=== PATIENT | male | born 1980 | race Caucasian/White ===

== ENCOUNTER 2016-08-13 04:29 | Inpatient (IN) | payer MEDICAID ==
[~2016-08-13] VITALS: Ht 172.7 cm; Wt 89.9 kg
[2016-08-13] MEDS ORDERED: SUCCINYLCHOLINE CHLORIDE 20 MG/ML 10 ML VIAL ONE (04:35)
[2016-08-13] MEDS ORDERED: RAPID SEQUENCE KIT [RSI] 1 EACH KIT ONE ×2 (04:35)
[2016-08-13] MEDS ORDERED: SODIUM CHLORIDE 0.9% 1,000 ML IV ONE ×3 (04:40→05:50)
[2016-08-13 04:50] LABS: BASOPHILS % (AUTO) 0.3 % (0.0-2.0); EOSINOPHILS % (AUTO) 2.1 % (1.0-6.0); HEMATOCRIT 42.2 % (41-53); HEMOGLOBIN 13.9 g/dL (13.5-17.5); LYMPHOCYTES # (AUTO) 2.3 K/uL (1.0-4.8); LYMPHOCYTES % (AUTO) 19.2 % (22.0-44.0); MEAN CORPUSCULAR HEMOGLOBIN 31.5 pg (26.0-34.0); MEAN CORPUSCULAR HGB CONC 32.9 G/dL (31.0-37.0); MEAN CORPUSCULAR VOLUME 96 fL (80-100); MONOCYTES # (AUTO) 0.9 K/uL (0.1-1.0); NEUTROPHILS # (AUTO) 8.3 K/uL (1.8-7.7); NEUTROPHILS % (AUTO) 70.4 % (40.0-70.0); PLATELET COUNT (AUTO) 246 K/uL (150-450); RED BLOOD CELL COUNT(AUTO) 4.41 MIL/uL (4.50-5.90); RED CELL DISTRIBUTION WIDTH 12.4 % (11.5-14.5); WHITE BLOOD COUNT (AUTO) 11.8 K/uL (4.5-11.0)
[2016-08-13 04:51] LABS: GLUCOSE,POINT OF CARE 152 MG/DL (70-110)
[2016-08-13 04:55] LABS: ANION GAP 23 mmol/L (8-16); CALCIUM, TOTAL 8.4 mg/dL (8.8-10.5); CARBON DIOXIDE 19 mmol/L (22-29); CHLORIDE 99 mmol/L (98-107); CREATININE 1.71 mg/dL (0.60-1.30); GLOMERULAR FILTR. RATE CALC 46 mL/min (>60); POTASSIUM 3.6 mmol/L (3.5-5.1); SODIUM SERUM 141 mmol/L (136-145); UREA NITROGEN, BLOOD 15 mg/dL (7-18)
[2016-08-13 04:58] LABS: INR 1.1 (0.9-1.1); PROTHROMBIN TIME 11.5 SEC (9.4-11.6)
[2016-08-13 05:12] LABS: SALICYLATE < 2.8 mg/dL (2.8-20.0)
[2016-08-13 05:16] LABS: B-TYPE NATRIURETIC PEPTIDE 24 pg/mL (0-100)
[2016-08-13 05:20] LABS: ALANINE AMINOTRANSFERASE 93 U/L (12-78); ALBUMIN 3.9 g/dL (3.4-5.0); ASPARTATE AMINOTRANSFERASE 74 U/L (15-37); BILIRUBIN,TOTAL 0.6 mg/dL (0.1-1.0); CREATINE KINASE MB 6.9 ng/mL (0-5); CREATINE KINASE, TOTAL 1460 U/L (39-308)
[2016-08-13 05:21] LABS: ADD UA MICROSCOPIC YES; APPEARANCE,URINE CLOUDY (CLEAR); GLUCOSE, URINE (UA) NEGATIVE (NEGATIVE); KETONES,URINE 15 mg/dL (NEGATIVE); LEUKOCYTE ESTERASE ,URINE NEGATIVE (NEGATIVE); OCCULT BLOOD,URINE SMALL (NEGATIVE); PROTEIN,URINE SEE CONFIRM (NEGATIVE)
[2016-08-13] MEDS: PROPOFOL 1000 MG/ISO-OSM 100 ML IV PRN ×7 (05:26→23:42)
[2016-08-13 05:33] LABS: TEMPERATURE, FAHRENHEIT, BG 100.1 FAHREN (96.0-98.6)
[2016-08-13 05:36] LABS: ABG A-A DIFF O2 313.3 mmHg (10-20.0); ABG BASE EXCESS -7.5 mmol/L (-2.0-3.0); ABG HCO3 19.1 mmol/L (22.0-26.0); ABG OXYHEMOGLOBIN 98.3 % (94.0-100.0); ABG PCO2 36 mmHg (35-45); ABG PH 7.329 (7.350-7.450); ALLEN TEST, BLOOD GAS POSITIVE
[2016-08-13 05:38] LABS: SQUAMOUS EPITHELIAL CELL,UR Rare /LPF (None Seen); SULFOSALICYLIC ACID,URINE 1+ (Negative); WBC,URINE 0-2 /HPF (0-5)
[2016-08-13 05:41] LABS: ACETAMINOPHEN < 2 mcg/mL (10-30)
[2016-08-13 05:44] LABS: LACTIC ACID 9.3 mmol/L (0.4-2.0)
[2016-08-13] MEDS ORDERED: SUCCINYLCHOLINE CHLORIDE 20 MG/ML 10 ML VIAL IVP ONE (06:00)
[2016-08-13] MEDS ORDERED: ACETAMINOPHEN 325 MG TABLET PO PRN (06:00)
[2016-08-13] MEDS ORDERED: ETOMIDATE 2 MG/ML 10 ML VIAL IVP ONE ×2 (06:00→12:00)
[2016-08-13] MEDS ORDERED: 0.9% SODIUM CHLORIDE 10 ML SYRINGE IVP PRN (06:00)
[2016-08-13] MEDS ORDERED: ACETAMINOPHEN 650 MG RECTAL SUPPOSITORY PR ONE (06:15)
[2016-08-13 07:04] LABS: REFLEX LACTIC ACID? YES YES
[2016-08-13] MEDS ORDERED: ROCURONIUM BROMIDE 10 MG/ML 5 ML VIAL IVP ONE (07:30)
[2016-08-13] MEDS ORDERED: MORPHINE SULFATE 4 MG/ML SYRINGE ONE (10:20)
[2016-08-13] MEDS ORDERED: MORPHINE SULFATE 4 MG/ML SYRINGE IVP ONE (10:30)
[2016-08-13] MEDS ORDERED: PROPOFOL 1000 MG/ISO-OSM 100 ML IV ONE (10:41)
[2016-08-13] MEDS: MIDAZOLAM HCL 100 MG in DEXTROSE 5%-WATER 180 ML IV PRN (10:54)
[2016-08-13] MEDS: FentaNYL CITRATE PF 500 MCG in DEXTROSE 5%-WATER 90 ML IV PRN (10:55)
[2016-08-13 12:00] VITALS: BP 133/84
[2016-08-13] MEDS ORDERED: ONDANSETRON HCL 4 MG/2 ML VIAL IVP PRN (12:15)
[2016-08-13] MEDS ORDERED: HYDROCODONE/ACETAMINOPHEN 5-325 MG TABLET PO PRN (12:15)
[2016-08-13] MEDS ORDERED: MORPHINE SULFATE 2 MG/ML SYRINGE IVP PRN (12:15)
[2016-08-13] MEDS ORDERED: ZOLPIDEM TARTRATE 5 MG TABLET PO PRN (12:15)
[2016-08-13] MEDS ORDERED: MAGNESIUM HYDROXIDE SUSPENSION 30 ML UDCUP PO PRN (12:15)
[2016-08-13] MEDS ORDERED: BISACODYL 10 MG RECTAL RECTAL SUPPOSITORY PR PRN (12:15)
[2016-08-13] MEDS: SODIUM CHLORIDE 0.9% 1,000 ML IV SCH ×2 (12:31→22:31)
[2016-08-13] MEDS ORDERED: INFLUENZA VIRUS VACCINE QVS 2016-17 (3YR+)/PF 60 MCG/0.5 ML SYRINGE IM ONE (14:45)
[2016-08-13] MEDS: HEPARIN SODIUM,PORCINE 5,000 UNITS/ML VIAL SQ SCH ×2 (15:18→23:42)
[2016-08-13 16:00] VITALS: BP 124/77
[2016-08-13 20:00] VITALS: BP 126/81
[2016-08-13] MEDS: DOCUSATE SODIUM 100 MG CAPSULE PO SCH (20:51)
[2016-08-14 00:17] VITALS: BP 125/79
[2016-08-14] MEDS: FentaNYL CITRATE PF 500 MCG in DEXTROSE 5%-WATER 90 ML IV PRN (02:24)
[2016-08-14] MEDS: PROPOFOL 1000 MG/ISO-OSM 100 ML IV PRN ×8 (02:27→22:31)
[2016-08-14] MEDS: ACETAMINOPHEN 325 MG TABLET PO PRN ×3 (03:09→20:38)
[2016-08-14 04:00] VITALS: BP 135/79
[2016-08-14 05:41] LABS: BASOPHILS % (AUTO) 0.3 % (0.0-2.0); EOSINOPHILS % (AUTO) 3.9 % (1.0-6.0); HEMATOCRIT 36.8 % (41-53); HEMOGLOBIN 12.3 g/dL (13.5-17.5); LYMPHOCYTES # (AUTO) 1.2 K/uL (1.0-4.8); LYMPHOCYTES % (AUTO) 14.7 % (22.0-44.0); MEAN CORPUSCULAR HEMOGLOBIN 31.8 pg (26.0-34.0); MEAN CORPUSCULAR HGB CONC 33.4 G/dL (31.0-37.0); MEAN CORPUSCULAR VOLUME 95 fL (80-100); MONOCYTES # (AUTO) 0.7 K/uL (0.1-1.0); MONOCYTES % (AUTO) 9.1 % (2.0-9.0); NEUTROPHILS # (AUTO) 5.9 K/uL (1.8-7.7); PLATELET COUNT (AUTO) 159 K/uL (150-450); RED BLOOD CELL COUNT(AUTO) 3.87 MIL/uL (4.50-5.90); RED CELL DISTRIBUTION WIDTH 13.3 % (11.5-14.5); WHITE BLOOD COUNT (AUTO) 8.2 K/uL (4.5-11.0)
[2016-08-14 06:01] LABS: ANION GAP 11 mmol/L (8-16); CALCIUM, TOTAL 7.8 mg/dL (8.8-10.5); CARBON DIOXIDE 27 mmol/L (22-29); CHLORIDE 103 mmol/L (98-107); CREATININE 0.77 mg/dL (0.60-1.30); GLOMERULAR FILTR. RATE CALC > 60 mL/min (>60); SODIUM SERUM 141 mmol/L (136-145); UREA NITROGEN, BLOOD 8 mg/dL (7-18)
[2016-08-14 07:01] LABS: POTASSIUM 2.6 mmol/L (3.5-5.1)
[2016-08-14 07:29] LABS: CREATINE KINASE MB 7.4 ng/mL (0-5)
[2016-08-14 07:30] LABS: CREATINE KINASE, TOTAL 1385 U/L (39-308)
[2016-08-14 08:00] VITALS: BP 144/85
[2016-08-14] MEDS: HEPARIN SODIUM,PORCINE 5,000 UNITS/ML VIAL SQ SCH ×3 (08:48→23:56)
[2016-08-14] MEDS: PANTOPRAZOLE SODIUM 40 MG DR TABLET PO SCH (08:49)
[2016-08-14] MEDS: SODIUM CHLORIDE 0.9% 1,000 ML IV SCH (08:49)
[2016-08-14] MEDS: DOCUSATE SODIUM 100 MG CAPSULE PO SCH ×2 (08:49→20:38)
[2016-08-14 08:56] LABS: ABG A-A DIFF O2 87.3 mmHg (10-20.0); ABG BASE EXCESS -2.9 mmol/L (-2.0-3.0); ABG HCO3 22.5 mmol/L (22.0-26.0); ABG OXYHEMOGLOBIN 95.5 % (94.0-100.0); ABG PCO2 36 mmHg (35-45); ABG PH 7.405 (7.350-7.450); TEMPERATURE, FAHRENHEIT, BG 98.6 FAHREN (96.0-98.6)
[2016-08-14 09:01] LABS: ALLEN TEST, BLOOD GAS Positive
[2016-08-14] MEDS ORDERED: POTASSIUM CHLORIDE 20 MEQ ER TABLET PO PRN ×2 (09:45→19:30)
[2016-08-14] MEDS: POTASSIUM CHL 10 MEQ/WATER 50 ML IV PRN ×6 (10:33→23:54)
[2016-08-14 12:00] VITALS: BP 150/87
[2016-08-14] MEDS: MIDAZOLAM HCL 100 MG in DEXTROSE 5%-WATER 180 ML IV PRN (12:25)
[2016-08-14] MEDS ORDERED: SODIUM CHLORIDE 0.9% 1,000 ML IV ONE (13:00)
[2016-08-14 16:00] VITALS: BP 139/84
[2016-08-14] MEDS ORDERED: 0.9% SODIUM CHLORIDE 10 ML SYRINGE IVP PRN (18:00)
[2016-08-14] MEDS: POTASSIUM CHL 20 MEQ/0.9% NS 1,000 ML IV SCH (19:34)
[2016-08-14 20:00] VITALS: BP 124/76
[2016-08-15] VITALS: BP 135/83
[2016-08-15] MEDS: ACETAMINOPHEN 325 MG TABLET PO PRN ×3 (01:00→21:00)
[2016-08-15] MEDS: POTASSIUM CHL 10 MEQ/WATER 50 ML IV PRN ×4 (01:01→08:47)
[2016-08-15] MEDS: PROPOFOL 1000 MG/ISO-OSM 100 ML IV PRN ×7 (01:01→22:56)
[2016-08-15 04:00] VITALS: BP 116/68
[2016-08-15] MEDS: POTASSIUM CHL 20 MEQ/0.9% NS 1,000 ML IV SCH ×3 (04:15→23:58)
[2016-08-15 05:39] LABS: BASOPHILS # (AUTO) 0.05 K/uL (0.00-0.20); BASOPHILS % (AUTO) 0.5 % (0.0-2.0); EOSINOPHILS # (AUTO) 0.26 K/uL (0.00-0.70); EOSINOPHILS % (AUTO) 2.81 % (1.0-6.0); HEMATOCRIT 35.2 % (41-53); HEMOGLOBIN 11.9 g/dL (13.5-17.5); LYMPHOCYTES % (AUTO) 11.3 % (22.0-44.0); MEAN CORPUSCULAR HEMOGLOBIN 32.1 pg (26.0-34.0); MEAN CORPUSCULAR HGB CONC 33.8 G/dL (31.0-37.0); MEAN CORPUSCULAR VOLUME 95 fL (80-100); MONOCYTES # (AUTO) 0.5 K/uL (0.1-1.0); MONOCYTES % (AUTO) 5.5 % (2.0-9.0); NEUTROPHILS # (AUTO) 7.4 K/uL (1.8-7.7); PLATELET COUNT (AUTO) 170 K/uL (150-450); RED BLOOD CELL COUNT(AUTO) 3.71 MIL/uL (4.50-5.90); RED CELL DISTRIBUTION WIDTH 13.9 % (11.5-14.5); WHITE BLOOD COUNT (AUTO) 9.3 K/uL (4.5-11.0)
[2016-08-15 06:12] LABS: ANION GAP 11 mmol/L (8-16); CALCIUM, TOTAL 7.6 mg/dL (8.8-10.5); CARBON DIOXIDE 24 mmol/L (22-29); CHLORIDE 107 mmol/L (98-107); CREATINE KINASE MB 0.7 ng/mL (0-5); CREATINE KINASE, TOTAL 878 U/L (39-308); CREATININE 0.73 mg/dL (0.60-1.30); GLOMERULAR FILTR. RATE CALC > 60 mL/min (>60); POTASSIUM 3.5 mmol/L (3.5-5.1); SODIUM SERUM 142 mmol/L (136-145); UREA NITROGEN, BLOOD 5 mg/dL (7-18)
[2016-08-15 08:00] VITALS: BP 134/75
[2016-08-15] MEDS: HEPARIN SODIUM,PORCINE 5,000 UNITS/ML VIAL SQ SCH ×3 (08:51→23:57)
[2016-08-15] MEDS: PANTOPRAZOLE SODIUM 40 MG DR TABLET PO SCH (08:51)
[2016-08-15] MEDS: DOCUSATE SODIUM 100 MG CAPSULE PO SCH ×2 (08:51→20:59)
[2016-08-15] MEDS: FentaNYL CITRATE PF 500 MCG in DEXTROSE 5%-WATER 90 ML IV PRN (08:53)
[2016-08-15 10:29] LABS: ABG A-A DIFF O2 55.6 mmHg (10-20.0); ABG BASE EXCESS -2.8 mmol/L (-2.0-3.0); ABG HCO3 22.5 mmol/L (22.0-26.0); ABG OXYHEMOGLOBIN 97.6 % (94.0-100.0); ABG PCO2 38 mmHg (35-45); ABG PH 7.389 (7.350-7.450); TEMPERATURE, FAHRENHEIT, BG 100.3 FAHREN (96.0-98.6)
[2016-08-15 10:30] LABS: ALLEN TEST, BLOOD GAS Positive
[2016-08-15] MEDS: MIDAZOLAM HCL 100 MG in DEXTROSE 5%-WATER 180 ML IV PRN (11:06)
[2016-08-15 12:00] VITALS: BP 126/76
[2016-08-15 16:00] VITALS: BP 116/73
[2016-08-15] MEDS ORDERED: VANCOMYCIN HCL 1.5 GM in DEXTROSE 5%-WATER 250 ML IV ONE (17:00)
[2016-08-15] MEDS: CefTRIAXone 1 GM/DEXTROSE 50 ML IV SCH (17:07)
[2016-08-15] MEDS ORDERED: SODIUM CHLORIDE 0.9% 500 ML IV ONE (17:10)
[2016-08-15 20:00] VITALS: BP 121/65
[2016-08-15] MEDS: VANCOMYCIN HCL 1.5 GM in DEXTROSE 5%-WATER 250 ML IV SCH (23:57)
[2016-08-16] VITALS: BP 110/57
[2016-08-16] MEDS: PROPOFOL 1000 MG/ISO-OSM 100 ML IV PRN ×8 (01:39→21:49)
[2016-08-16 04:00] VITALS: BP 136/84
[2016-08-16 05:25] LABS: BASOPHILS % (AUTO) 0.3 % (0.0-2.0); EOSINOPHILS % (AUTO) 7.6 % (1.0-6.0); HEMATOCRIT 35.2 % (41-53); HEMOGLOBIN 11.7 g/dL (13.5-17.5); LYMPHOCYTES # (AUTO) 1.1 K/uL (1.0-4.8); LYMPHOCYTES % (AUTO) 16.8 % (22.0-44.0); MEAN CORPUSCULAR HGB CONC 33.4 G/dL (31.0-37.0); MEAN CORPUSCULAR VOLUME 96 fL (80-100); MONOCYTES # (AUTO) 0.5 K/uL (0.1-1.0); MONOCYTES % (AUTO) 7.4 % (2.0-9.0); NEUTROPHILS # (AUTO) 4.6 K/uL (1.8-7.7); NEUTROPHILS % (AUTO) 67.9 % (40.0-70.0); PLATELET COUNT (AUTO) 200 K/uL (150-450); RED BLOOD CELL COUNT(AUTO) 3.67 MIL/uL (4.50-5.90); RED CELL DISTRIBUTION WIDTH 13.4 % (11.5-14.5); WHITE BLOOD COUNT (AUTO) 6.8 K/uL (4.5-11.0)
[2016-08-16 05:44] LABS: ALANINE AMINOTRANSFERASE 73 U/L (12-78); ALBUMIN 2.5 g/dL (3.4-5.0); ANION GAP 10 mmol/L (8-16); ASPARTATE AMINOTRANSFERASE 46 U/L (15-37); BILIRUBIN,TOTAL 0.4 mg/dL (0.1-1.0); CARBON DIOXIDE 25 mmol/L (22-29); CHLORIDE 107 mmol/L (98-107); CREATININE 0.77 mg/dL (0.60-1.30); GLOMERULAR FILTR. RATE CALC > 60 mL/min (>60); POTASSIUM 3.7 mmol/L (3.5-5.1); SODIUM SERUM 142 mmol/L (136-145); TOTAL PROTEIN, SERUM 6.8 g/dL (6.4-8.2)
[2016-08-16 06:05] LABS: UREA NITROGEN, BLOOD 4 mg/dL (7-18)
[2016-08-16 08:00] VITALS: BP 131/87
[2016-08-16] MEDS: VANCOMYCIN HCL 1.5 GM in DEXTROSE 5%-WATER 250 ML IV SCH ×2 (08:22→16:40)
[2016-08-16] MEDS: DOCUSATE SODIUM 100 MG CAPSULE PO SCH ×2 (08:23→20:25)
[2016-08-16] MEDS: PANTOPRAZOLE SODIUM 40 MG DR TABLET PO SCH (08:23)
[2016-08-16] MEDS: HEPARIN SODIUM,PORCINE 5,000 UNITS/ML VIAL SQ SCH ×2 (08:23→16:40)
[2016-08-16] MEDS: POTASSIUM CHL 20 MEQ/0.9% NS 1,000 ML IV SCH ×2 (10:06→20:26)
[2016-08-16 11:01] LABS: ABG A-A DIFF O2 78.9 mmHg (10-20.0); ABG HCO3 23.1 mmol/L (22.0-26.0); ABG OXYHEMOGLOBIN 95.8 % (94.0-100.0); ABG PCO2 38 mmHg (35-45); ABG PH 7.395 (7.350-7.450); ALLEN TEST, BLOOD GAS PASS; TEMPERATURE, FAHRENHEIT, BG 100.2 FAHREN (96.0-98.6)
[2016-08-16 12:00] VITALS: BP 126/69
[2016-08-16] MEDS: HALOPERIDOL LACTATE 5 MG/ML VIAL IVP PRN ×3 (13:15→21:35)
[2016-08-16 16:00] VITALS: BP 114/65
[2016-08-16] MEDS: CefTRIAXone 1 GM/DEXTROSE 50 ML IV SCH (19:05)
[2016-08-16 20:00] VITALS: BP 131/84
[2016-08-16] MEDS ORDERED: SODIUM CHLORIDE 0.9% 250 ML IV ONE (21:49)
[2016-08-16] MEDS ORDERED: CefTRIAXone 1 GM/DEXTROSE 50 ML IV ONE (23:00)
[2016-08-17] VITALS (8 sets, daily range): BP systolic 122–178; BP diastolic 35–97
[2016-08-17] MEDS: HEPARIN SODIUM,PORCINE 5,000 UNITS/ML VIAL SQ SCH ×4 (00:05→23:01)
[2016-08-17] MEDS: PROPOFOL 1000 MG/ISO-OSM 100 ML IV PRN ×4 (00:06→09:52)
[2016-08-17] MEDS: FentaNYL CITRATE PF 500 MCG in DEXTROSE 5%-WATER 90 ML IV PRN (04:27)
[2016-08-17 05:15] LABS: ANION GAP 10 mmol/L (8-16); CARBON DIOXIDE 26 mmol/L (22-29); CHLORIDE 107 mmol/L (98-107); CREATININE 0.62 mg/dL (0.60-1.30); GLOMERULAR FILTR. RATE CALC > 60 mL/min (>60); SODIUM SERUM 143 mmol/L (136-145); UREA NITROGEN, BLOOD 4 mg/dL (7-18)
[2016-08-17] MEDS: POTASSIUM CHL 20 MEQ/0.9% NS 1,000 ML IV SCH (05:39)
[2016-08-17] MEDS: DOCUSATE SODIUM 100 MG CAPSULE PO SCH ×2 (08:58→20:33)
[2016-08-17] MEDS: PANTOPRAZOLE SODIUM 40 MG DR TABLET PO SCH (08:58)
[2016-08-17 09:37] LABS: ABG A-A DIFF O2 78.9 mmHg (10-20.0); ABG BASE EXCESS -1.2 mmol/L (-2.0-3.0); ABG HCO3 23.7 mmol/L (22.0-26.0); ABG OXYHEMOGLOBIN 96.6 % (94.0-100.0); ABG PCO2 38 mmHg (35-45); ABG PH 7.405 (7.350-7.450); TEMPERATURE, FAHRENHEIT, BG 98.6 FAHREN (96.0-98.6)
[2016-08-17 09:39] LABS: ALLEN TEST, BLOOD GAS Positive
[2016-08-17 13:31] LABS: ABG A-A DIFF O2 104.3 mmHg (10-20.0); ABG BASE EXCESS -3.5 mmol/L (-2.0-3.0); ABG HCO3 22.1 mmol/L (22.0-26.0); ABG OXYHEMOGLOBIN 92.9 % (94.0-100.0); ABG PCO2 35 mmHg (35-45); ABG PH 7.403 (7.350-7.450); ALLEN TEST, BLOOD GAS Positive; TEMPERATURE, FAHRENHEIT, BG 98.6 FAHREN (96.0-98.6)
[2016-08-17 14:53] LABS: ABG A-A DIFF O2 69.2 mmHg (10-20.0); ABG BASE EXCESS -0.6 mmol/L (-2.0-3.0); ABG HCO3 23.9 mmol/L (22.0-26.0); ABG PCO2 43 mmHg (35-45); ABG PH 7.379 (7.350-7.450); TEMPERATURE, FAHRENHEIT, BG 98.6 FAHREN (96.0-98.6)
[2016-08-17 14:55] LABS: ALLEN TEST, BLOOD GAS Positive
[2016-08-17] MEDS ORDERED: 0.9% SODIUM CHLORIDE 5 ML NEB SOLUTION NEB ONE ×3 (15:11→21:29)
[2016-08-17] MEDS ORDERED: ALBUTEROL SULFATE 2.5 MG/0.5 ML NEB SOLUTION NEB PRN (16:15)
[2016-08-17] MEDS ORDERED: IPRATROPIUM BROMIDE 0.5 MG/2.5 ML NEB SOLUTION NEB PRN (16:15)
[2016-08-17] MEDS: HALOPERIDOL LACTATE 5 MG/ML VIAL IVP PRN (16:55)
[2016-08-17] MEDS: MethylPREDNISolone SOD SUCC 125 MG/2 ML VIAL IVP SCH ×2 (17:30→23:01)
[2016-08-17] MEDS: RACEPINEPHRINE HCL 2.25% 0.5 ML NEB SOLUTION NEB PRN ×2 (17:32→21:29)
[2016-08-17] MEDS: CefTRIAXone SODIUM 2 GM in DEXTROSE 5%-WATER 50 ML IV SCH (20:33)
[2016-08-18] VITALS: BP 161/78
[2016-08-18 04:00] VITALS: BP 152/77
[2016-08-18 05:34] LABS: ANION GAP 8 mmol/L (8-16); CARBON DIOXIDE 28 mmol/L (22-29); CHLORIDE 102 mmol/L (98-107); CREATININE 0.62 mg/dL (0.60-1.30); GLOMERULAR FILTR. RATE CALC > 60 mL/min (>60); POTASSIUM 4.2 mmol/L (3.5-5.1); SODIUM SERUM 138 mmol/L (136-145); UREA NITROGEN, BLOOD 10 mg/dL (7-18)
[2016-08-18] MEDS: MethylPREDNISolone SOD SUCC 125 MG/2 ML VIAL IVP SCH (06:40)
[2016-08-18 08:00] VITALS: BP 138/70
[2016-08-18] MEDS: DOCUSATE SODIUM 100 MG CAPSULE PO SCH ×2 (08:11→21:32)
[2016-08-18] MEDS: PANTOPRAZOLE SODIUM 40 MG DR TABLET PO SCH (08:11)
[2016-08-18] MEDS: HEPARIN SODIUM,PORCINE 5,000 UNITS/ML VIAL SQ SCH ×2 (08:12→17:36)
[2016-08-18 08:13] LABS: ABG PCO2 43 mmHg (35-45); ABG PH 7.382 (7.350-7.450); TEMPERATURE, FAHRENHEIT, BG 98.5 FAHREN (96.0-98.6)
[2016-08-18 08:14] LABS: ABG A-A DIFF O2 74.7 mmHg (10-20.0); ABG BASE EXCESS 0.2 mmol/L (-2.0-3.0); ABG HCO3 24.5 mmol/L (22.0-26.0); ALLEN TEST, BLOOD GAS Positive
[2016-08-18 12:00] VITALS: BP 137/87
[2016-08-18 16:11] VITALS: BP 131/91
[2016-08-18 20:09] VITALS: BP 133/79
[2016-08-18] MEDS ORDERED: SODIUM CHLORIDE 0.9% 1,000 ML IV ONE (21:25)
[2016-08-18] MEDS: CefTRIAXone SODIUM 2 GM in DEXTROSE 5%-WATER 50 ML IV SCH (21:32)
[2016-08-19 00:06] VITALS: BP 137/87
[2016-08-19] MEDS: HEPARIN SODIUM,PORCINE 5,000 UNITS/ML VIAL SQ SCH ×4 (00:40→23:38)
[2016-08-19 04:00] VITALS: BP 132/84
[2016-08-19 06:23] LABS: ANION GAP 6 mmol/L (8-16); CALCIUM, TOTAL 8.8 mg/dL (8.8-10.5); CARBON DIOXIDE 29 mmol/L (22-29); CHLORIDE 103 mmol/L (98-107); GLOMERULAR FILTR. RATE CALC > 60 mL/min (>60); POTASSIUM 3.6 mmol/L (3.5-5.1); SODIUM SERUM 138 mmol/L (136-145); UREA NITROGEN, BLOOD 22 mg/dL (7-18)
[2016-08-19 07:06] VITALS: BP 112/72
[2016-08-19] MEDS: DOCUSATE SODIUM 100 MG CAPSULE PO SCH ×2 (08:23→20:27)
[2016-08-19] MEDS: PANTOPRAZOLE SODIUM 40 MG DR TABLET PO SCH (08:23)
[2016-08-19 10:59] VITALS: BP 123/73
[2016-08-19 15:05] VITALS: BP 110/65
[2016-08-19] MEDS ORDERED: AMPICILLIN SODIUM 2 GM/NS 100 ML IV SCH (17:00)
[2016-08-19 20:03] VITALS: BP 116/75
[2016-08-19] MEDS: AMPICILLIN SODIUM/SULBACTAM NA 3 GM in SODIUM CHLORIDE 0.9% 100 ML IV SCH (23:38)
[2016-08-20 00:10] VITALS: BP 126/75
[2016-08-20 04:44] VITALS: BP 132/80
[2016-08-20] MEDS: AMPICILLIN SODIUM/SULBACTAM NA 3 GM in SODIUM CHLORIDE 0.9% 100 ML IV SCH ×2 (05:13→11:06)
[2016-08-20 07:00] VITALS: BP 129/69
[2016-08-20] MEDS: HEPARIN SODIUM,PORCINE 5,000 UNITS/ML VIAL SQ SCH ×2 (08:46→16:44)
[2016-08-20] MEDS: DOCUSATE SODIUM 100 MG CAPSULE PO SCH (08:48)
[2016-08-20] MEDS: PANTOPRAZOLE SODIUM 40 MG DR TABLET PO SCH (08:48)
[2016-08-20 11:39] VITALS: BP 129/74
[2016-08-20 15:33] VITALS: BP 126/55
[2016-08-20] MEDS ORDERED: DSSL PO (18:11)
[2016-08-20] MEDS ORDERED: PANT40TA25 PO (18:11)
[2016-08-20] MEDS ORDERED: AMOX1TAB16 PO (18:12)
== END 2016-08-20 18:28 | disposition home or self-care (01) | DRG 870 ==
LOC: EMS 04:34 → ICU 09:08 → 5N 08-18 11:43
PROVIDERS: ADMIT Internal Medicine; ATTEND Internal Medicine
PROC: 5A1955Z Respiratory Ventilation, Greater than 96 Consecutive Hours (ICD-10-PCS; principal; 2016-08-13)
PROC: 0BH17EZ Insertion of Endotracheal Airway into Trachea, Via Natural or Artificial Opening (ICD-10-PCS; 2016-08-13)
DX: A41.9 Sepsis, unspecified organism (principal); J96.00 Acute respiratory failure, unspecified whether with hypoxia or hypercapnia; G92 Toxic encephalopathy; J18.1 Lobar pneumonia, unspecified organism; M62.82 Rhabdomyolysis; B17.9 Acute viral hepatitis, unspecified; B95.5 Unspecified streptococcus as the cause of diseases classified elsewhere; E87.6 Hypokalemia; E87.2 Acidosis; N17.9 Acute kidney failure, unspecified; R74.0 Nonspecific elevation of levels of transaminase and lactic acid dehydrogenase [LDH]; F15.10 Other stimulant abuse, uncomplicated; Z78.1 Physical restraint status
CPT/HCPCS: 31500; 70450; 82805; 82962; 83605; 83735; 84100; 84132; 84443; 87040; 87070; 87081; 87205; 90471; 92610; 93005; 93306; 94002; 94003; 94640; 96361; 96365; 96366; 96374; 96375; 97161; 99291; G0480; G0481; J0290; J0295; J0330; J0696; J1630; J1644; J2250; J2270; J2704; J2930; J3010; J3370; J3480; J3490; J7030; J7040; J7050; J7060

== ENCOUNTER 2021-09-17 14:37 | Inpatient (IN) | payer MEDICAID ==
[~2021-09-17] VITALS: Ht 162.6 cm; Wt 82.4 kg
[~2021-09-17 14:37] MED LIST: AMOX1TAB16 PO; DOCU50LI36 PO; PANT-31 PO
[2021-09-17 15:27] LABS: COVID AG,FIA SOURCE NASOPHARYNGEAL
[2021-09-17 16:02] LABS: INFLUENZA TYPE A NEGATIVE FOR TYPE A (NEGATIVE); INFLUENZA TYPE B NEGATIVE FOR TYPE B (NEGATIVE)
[2021-09-17] MEDS ORDERED: LABETALOL HCL 5 MG/ML 20 ML VIAL IVP ONE (17:30)
[2021-09-17 17:39] LABS: BASOPHILS % (AUTO) 0.3 % (0.0-2.0); EOSINOPHILS % (AUTO) 0.2 % (1.0-6.0); HEMATOCRIT 45.3 % (41-53); HEMOGLOBIN 15.5 g/dL (13.5-17.5); LYMPHOCYTES # (AUTO) 1.4 K/uL (1.0-4.8); MEAN CORPUSCULAR HEMOGLOBIN 31.9 pg (26.0-34.0); MEAN CORPUSCULAR HGB CONC 34.3 G/dL (31.0-37.0); MEAN CORPUSCULAR VOLUME 93 fL (80-100); MONOCYTES # (AUTO) 0.6 K/uL (0.1-1.0); MONOCYTES % (AUTO) 7.6 % (2.0-9.0); NEUTROPHILS # (AUTO) 5.7 K/uL (1.8-7.7); NEUTROPHILS % (AUTO) 73.9 % (40.0-70.0); PLATELET COUNT (AUTO) 288 K/uL (150-450); RED BLOOD CELL COUNT(AUTO) 4.88 MIL/uL (4.50-5.90); RED CELL DISTRIBUTION WIDTH 12.9 % (11.5-14.5)
[2021-09-17 17:45] LABS: ANION GAP 6 mmol/L (8-16); CALCIUM, TOTAL 8.8 mg/dL (8.8-10.5); CARBON DIOXIDE 29 mmol/L (22-29); CHLORIDE 99 mmol/L (98-107); CREATININE 0.74 mg/dL (0.60-1.30); GLOMERULAR FILTR. RATE CALC > 60 mL/min (>60); GLUCOSE,RANDOM 115 mg/dL (70-110); POTASSIUM 4.1 mmol/L (3.5-5.1); SODIUM SERUM 134 mmol/L (136-145); UREA NITROGEN, BLOOD 14 mg/dL (7-18)
[2021-09-17] MEDS ORDERED: MORPHINE SULFATE 2 MG/ML SYRINGE IVP ONE (17:45)
[2021-09-17 17:46] LABS: PROTHROMBIN TIME 10.6 SEC (9.4-11.6)
[2021-09-17 17:51] LABS: ALANINE AMINOTRANSFERASE 24 U/L (12-78); ALBUMIN 3.9 g/dL (3.4-5.0); ALKALINE PHOSPHATASE 123 U/L (46-116); ASPARTATE AMINOTRANSFERASE 14 U/L (15-37); BILIRUBIN,TOTAL 0.6 mg/dL (0.1-1.0); TOTAL PROTEIN, SERUM 8.8 g/dL (6.4-8.2)
[2021-09-17] MEDS ORDERED: MORPHINE SULFATE 2 MG/ML SYRINGE IVP PRN (18:45)
[2021-09-17] MEDS ORDERED: MAGNESIUM HYDROXIDE SUSPENSION 30 ML UDCUP PO PRN (18:45)
[2021-09-17] MEDS ORDERED: ACETAMINOPHEN 325 MG TABLET PO PRN (18:45)
[2021-09-17] MEDS: FAMOTIDINE 20 MG TABLET PO SCH (20:09)
[2021-09-17] MEDS: ATORVASTATIN CALCIUM 20 MG TABLET PO SCH (20:09)
[2021-09-17] MEDS: DOCUSATE SODIUM 100 MG CAPSULE PO SCH (20:10)
[2021-09-17] MEDS: OxyCODONE HCL/ACETAMINOPHEN 5-325 MG TABLET PO PRN (22:02)
[2021-09-17] MEDS ORDERED: CloNIDine HCL 0.1 MG TABLET PO PRN (22:15)
[2021-09-17] MEDS ORDERED: AmLODIPine BESYLATE 10 MG TABLET PO ONE (22:15)
[2021-09-18] VITALS (7 sets, daily range): BP systolic 110–152; BP diastolic 41–100
[2021-09-18 03:28] LABS: AMPHET/METH SCREEN,URINE NEGATIVE (NEGATIVE); BARBITURATE SCREEN, URINE NEGATIVE (NEGATIVE); BENZODIAZEPINES SCREEN,URINE NEGATIVE (NEGATIVE); CANNABINOID SCREEN,URINE NEGATIVE (NEGATIVE); COCAINE SCREEN,URINE NEGATIVE (NEGATIVE); METHADONE SCREEN, URINE NEGATIVE (NEGATIVE); OPIATE SCREEN,URINE POSITIVE (NEGATIVE); PHENCYCLIDINE SCREEN,URINE NEGATIVE (NEGATIVE)
[2021-09-18] MEDS: OxyCODONE HCL/ACETAMINOPHEN 5-325 MG TABLET PO PRN ×4 (04:46→21:12)
[2021-09-18] MEDS: AmLODIPine BESYLATE 5 MG TABLET PO SCH (08:07)
[2021-09-18] MEDS: FAMOTIDINE 20 MG TABLET PO SCH ×2 (08:07→20:09)
[2021-09-18] MEDS: DOCUSATE SODIUM 100 MG CAPSULE PO SCH ×2 (08:08→20:10)
[2021-09-18] MEDS ORDERED: GADOTERATE MEGLUMINE 10 MMOL/20 ML VIAL IVP ONE (08:54)
[2021-09-18] MEDS: ONDANSETRON HCL 4 MG/2 ML VIAL IVP PRN ×2 (09:31→15:46)
[2021-09-18] MEDS: ATORVASTATIN CALCIUM 20 MG TABLET PO SCH (20:09)
[2021-09-19] VITALS: BP 118/78
[2021-09-19] MEDS: OxyCODONE HCL/ACETAMINOPHEN 5-325 MG TABLET PO PRN ×4 (01:45→23:29)
[2021-09-19 04:00] VITALS: BP 140/90
[2021-09-19 08:00] VITALS: BP 151/92
[2021-09-19] MEDS ORDERED: LORazepam 1 MG TABLET PO PRN (09:30)
[2021-09-19] MEDS: FAMOTIDINE 20 MG TABLET PO SCH ×2 (10:03→21:25)
[2021-09-19] MEDS: DOCUSATE SODIUM 100 MG CAPSULE PO SCH ×2 (10:03→21:25)
[2021-09-19] MEDS: AmLODIPine BESYLATE 5 MG TABLET PO SCH (10:03)
[2021-09-19] MEDS: ONDANSETRON HCL 4 MG/2 ML VIAL IVP PRN (11:17)
[2021-09-19] MEDS ORDERED: GADOTERATE MEGLUMINE 10 MMOL/20 ML VIAL IVP ONE (11:33)
[2021-09-19 12:00] VITALS: BP 141/99
[2021-09-19] MEDS ORDERED: MORPHINE SULFATE 2 MG/ML SYRINGE IVP ONE (12:15)
[2021-09-19 16:00] VITALS: BP 118/77
[2021-09-19] MEDS ORDERED: KETOROLAC TROMETHAMINE 30 MG/ML VIAL IVP ONE (17:45)
[2021-09-19] MEDS ORDERED: METOCLOPRAMIDE HCL 5 MG/ML 2 ML VIAL IVP ONE (17:45)
[2021-09-19] MEDS ORDERED: DiphenhydrAMINE HCL 50 MG/ML VIAL IVP ONE (17:45)
[2021-09-19] MEDS ORDERED: SODIUM CHLORIDE 0.9% 1,000 ML IV ONE (18:45)
[2021-09-19] MEDS: ATORVASTATIN CALCIUM 20 MG TABLET PO SCH (21:25)
[2021-09-19 23:44] VITALS: BP 132/69
[2021-09-20] MEDS: OxyCODONE HCL/ACETAMINOPHEN 5-325 MG TABLET PO PRN (03:58)
[2021-09-20 04:36] VITALS: BP 158/95
[2021-09-20] MEDS: FAMOTIDINE 20 MG TABLET PO SCH (08:13)
[2021-09-20] MEDS: DOCUSATE SODIUM 100 MG CAPSULE PO SCH (08:14)
[2021-09-20] MEDS: AmLODIPine BESYLATE 5 MG TABLET PO SCH (08:16)
[2021-09-20 08:49] VITALS: BP 145/85
[2021-09-20] MEDS ORDERED: ATOR20TA86 PO (10:18)
[2021-09-20] MEDS ORDERED: AMLO-257 PO (10:19)
[2021-09-20 11:54] VITALS: BP 140/87
== END 2021-09-20 12:38 | disposition home or self-care (01) | DRG 44 ==
LOC: EMS 14:46 → ICU 18:21 → 5S 09-19 18:55
PROVIDERS: ADMIT Internal Medicine; ATTEND Internal Medicine
DX: I61.9 Nontraumatic intracerebral hemorrhage, unspecified (principal); F41.1 Generalized anxiety disorder; I10 Essential (primary) hypertension; Z20.822 Contact with and (suspected) exposure to COVID-19
CPT/HCPCS: 70450; 70544; 70553; 80053; 80307; 85025; 85610; 85730; 86850; 86900; 86901; 87081; 87804; 93005; 93306; 97161; 97165; 97535; 99285; G0378; J1200; J1885; J2270; J2405; J2765; J3490; J7030